=== PATIENT | female | born 1990 | race Caucasian/White ===

== ENCOUNTER 2017-01-01 20:59 | Emergency (ER) | payer MEDICAID ==
[2016-03-02 13:29] VITALS: BMI 42.0
[~2017-01-01 20:59] MED LIST: IBUPROFEN600 MG PO; PERCOCET 5-3251 TAB PO; PRENATAL COMPLE1 TAB PO
[2017-01-01 21:34] LABS: APPEARANCE CLEAR (CLEAR); BILIRUBIN NEGATIVE (NEGATIVE); COLOR YELLOW (YELLOW); GLUCOSE NEGATIVE (NEGATIVE); KETONE NEGATIVE (NEGATIVE); LEUKOCYTE ESTERASE NEGATIVE (NEGATIVE); NITRITE NEGATIVE (NEGATIVE); PROTEIN NEGATIVE (NEGATIVE); UROBILINOGEN NORMAL (NORMAL)
[2017-01-01 21:39] LABS: HCG URINE NEGATIVE (NEGATIVE)
== END 2017-01-01 23:40 | disposition home or self-care (01) ==
LOC: D.ER 20:59
PROVIDERS: Emergency Medicine
DX: N76.0 Acute vaginitis (principal); F17.200 Nicotine dependence, unspecified, uncomplicated

== ENCOUNTER 2017-06-18 23:17 | Emergency (ER) | payer MEDICAID ==
[2016-03-02 13:29] VITALS: BMI 42.0
== END 2017-06-18 23:55 | disposition home or self-care (01) ==
LOC: D.ER 23:17
DX: J11.1 Influenza due to unidentified influenza virus with other respiratory manifestations (principal); R09.89 Other specified symptoms and signs involving the circulatory and respiratory systems; R51 Headache

== ENCOUNTER 2018-09-09 21:17 | Inpatient (IN) | payer MEDICAID ==
[~2018-09-09] VITALS: Ht 170.2 cm; Wt 109.1 kg
[2018-09-09 22:07] LABS: APPEARANCE CLEAR (CLEAR); BILIRUBIN NEGATIVE (NEGATIVE); COLOR STRAW (YELLOW); GLUCOSE NEGATIVE (NEGATIVE); KETONE NEGATIVE (NEGATIVE); NITRITE NEGATIVE (NEGATIVE); PROTEIN NEGATIVE (NEGATIVE); SPECIFIC GRAVITY 1.015 (1.005-1.020); UROBILINOGEN NORMAL (NORMAL)
[2018-09-09 22:11] LABS: HCG URINE NEGATIVE (NEGATIVE)
[2018-09-09 22:29] LABS: BASOPHILS 0.4 % (0-2); EOSINOPHILS 2.8 % (0-7); HEMATOCRIT 37.8 % (36.0-48.0); HEMOGLOBIN 12.4 g/dL (12-16); IMMATURE GRANULOCYTES 0.3 % (0-5); LYMPHOCYTES 28.7 % (15-50); MCH 25.9 pg (26.0-34.0); MCHC 32.8 g/dL (31.0-37.0); MCV 78.9 fL (80.0-100.0); MEAN PLATELET VOLUME 10.1 fL (7.4-10.4); NEUTROPHILS 59.8 % (40-80); PLATELET COUNT 231 10x3/uL (130-400); RBC 4.79 10x6/uL (4.00-5.40); RDW 14.3 % (11.5-14.5); WBC 11.9 10x3/uL (4.8-10.8)
[2018-09-09 22:46] LABS: ALBUMIN 3.5 g/dL (3.4-5.0); ALKALINE PHOSPHATASE 77 U/L (46-116); ALT (SGPT) 32 U/L (10-68); BILIRUBIN - TOTAL 0.16 mg/dL (0.2-1.3); CALC OSMOLALITY 280 mosm/kg (275-300); CALCIUM 9.2 mg/dL (8.5-10.1); CARBON DIOXIDE 26.7 mmol/L (21.0-32.0); CHLORIDE - SERUM 106 mmol/L (98-107); CREATININE - SERUM 1.1 mg/dL (0.6-1.3); GLUCOSE 114 mg/dL (74-106); POTASSIUM - SERUM 3.7 mmol/L (3.5-5.1); PROTEIN - SERUM 7.2 g/dL (6.4-8.2); SODIUM 141 mmol/L (136-145); UREA NITROGEN 11 mg/dL (7-18); eGFR NON AFRICAN AMERICAN 64 mL/min (90-120)
[2018-09-09 22:54] LABS: AMYLASE - SERUM 46 U/L (25-115); LIPASE 118 U/L (73-393); TROPONIN-I < 0.017 ng/mL (0.000-0.060)
[2018-09-09 23:43] VITALS: BP 141/87
--- NOTE | 2018-09-09 23:44 | NUR ---
PATIENT AWAKE AND ALERT, COLOR WNL FOR RACE, RESPIRATIONS EVEN AND UNLABORED. NO NEEDS NOTED. UPDATED ON PLAN OF CARE AND DELAYS IN CARE. WILL CONTINUE TO MONITOR.
[2018-09-10 01:39] VITALS: BP 144/93
--- NOTE | 2018-09-10 02:52 | NUR ---
NS AT 125ML/HOUR AND ZOSYN IVPB CON'T ON ADMISSION TO 1213.
[2018-09-10] MEDS ORDERED: TUMS X-STR300 MG (03:08)
--- NOTE | 2018-09-10 03:17 | NUR ---
PT ARRIVED TO M3 WITH HOSPITAL STAFF AND FAMILY MEMBER, PT ALERT AND ORIENTED. CALL LIGHT IN REACH.
[2018-09-10 03:32] VITALS: BP 123/71; BMI 37.7
--- NOTE | 2018-09-10 03:45 | NUR ---
REST QUIETLY IN BED, CALL LIGHT IN REACH.
[2018-09-10 04:00] VITALS: BP 123/71
[2018-09-10 07:14] VITALS: BP 124/61; Ht 170.2 cm; Wt 109.1 kg
--- NOTE | 2018-09-10 07:14 | NUR ---
PT IS RESTING IN BED WITH EYES CLOSED RESPIRATIONS ARE EVEN AND UNLABORED. PT IS EASILY AROUSED WITH VERBAL STIMULATION. VISITOR IS IN ROOM IN BEDSIDE CHAIR. PT DENIES PRESENCE OF PAIN. PT DENIES PRESENCE OF N/V AT THIS TIME. BED IS IN THE LOWEST POSITION. CALL LIGHT AND BEDSIDE TABLE ARE WITHIN REACH. SIDE RAILS X 2. PT DENIES FURTHER NEEDS AT THIS TIME. WILL CONT TO MONITOR.
[2018-09-10 09:13] LABS: HEMATOCRIT 35.1 % (36.0-48.0); HEMOGLOBIN 11.2 g/dL (12-16); MCHC 31.9 g/dL (31.0-37.0); MCV 78.3 fL (80.0-100.0); MEAN PLATELET VOLUME 10.7 fL (7.4-10.4); PLATELET COUNT 217 10x3/uL (130-400); RBC 4.48 10x6/uL (4.00-5.40); RDW 14.4 % (11.5-14.5)
[2018-09-10 09:52] LABS: WBC 8.2 10x3/uL (4.8-10.8)
[2018-09-10 10:06] LABS: BASOPHILS 0.4 % (0-2); EOSINOPHILS 3.3 % (0-7); IMMATURE GRANULOCYTES 0.2 % (0-5); LYMPHOCYTES 34.3 % (15-50); MONOCYTES 8.4 % (2-11); NEUTROPHILS 53.4 % (40-80)
[2018-09-10 11:49] VITALS: BP 129/66
--- NOTE | 2018-09-10 15:57 | MORECARE ---
CASE MANAGEMENT DISCHARGE SUMMARY PATIENT: NICOLE CASTELLANOS UNIT: [id number] ADM DATE: 09/10/18 AGE: 28 : [birth year] SEX: F ROOM/BED: D.1213 AUTHOR: JULIÁN DUARTE PHYSICIAN: REFERRING PHYSICIAN: NAT LUIS MD DATE OF SERVICE: 09/10/18 Discharge Plan Patient Name: NICOLE CASTELLANOS Facility: [facility]:[place] : 1990 Planned Disposition: Home Anticipated Discharge Date: Discharge Date: Expected LOS: Initial Reviewer: [email or web address] Initial Review Date: 09/10/2018 Generated: 09/10/18 4:57 pm Comments DCP- Discharge Planning Updated by [email or web address]: Skye Schaffer on 09/10/18 2:[address] Patient Name: NICOLE CASTELLANOS Admission Status: ER Accout number: [id number] Admission Date: 09-10-2018 : 1990 Admission Diagnosis: Attending: NAT LUIS Current LOS: 1 Anticipated DC Date: Planned Disposition: Home Primary Insurance: [employer] [facility] Discharge Planning Comments: CM MET WITH PATIENT AND FAMILY ABOUT DC PLANNING/NEEDS. STATES IS TO HAVE SURGERY SUNDAY AND THEN DC TO HOME. DENIES ANY NEEDS AT THIS TIME. CM TO FOLLOW AND ASSIST NEEDED WITH DC PLANNING/NEEDS. Sandwich Machine Operator: Skye Schaffer DCPIA - Discharge Planning Initial Assessment Updated by [email or web address]: Skye Schaffer on 09/10/18 3:53 pm * Is the patient Alert and Oriented? Yes * PCP NONE * Pharmacy [facility] * Preadmission Environment Home with Family * ADLs Independent * Equipment None * List name and contact numbers for known caregivers / representatives who currently or will assist patient after discharge: ELIAZAR, * Community resources currently utilized None * Additional services required to return to the preadmission environment? No * Can the patient safely return to the preadmission environment? Yes * Has this patient been hospitalized within the prior 30 days at any hospital? No Patient Name: NICOLE CASTELLANOS Page [phone] at 1557 All edits/amendments must be made on the electronic document DICTATION DATE: 09/10/181555 SCRAP YARD WORKER: CARLOS 09/10/18 155 RPT#: [id number] DC DATE: STATUS: ADM IN [facility] [address] [place] [address] END OF REPORT
[2018-09-10] MEDS ORDERED: HYDROCODON-ACE1 EA10 PO (16:11)
[2018-09-10 16:35] VITALS: BP 133/65
--- NOTE | 2018-09-10 18:10 | NUR ---
DISCHARGE INSTRUCTIONS GIVEN TO PT AND PT FAMILY MEMBER. PRINTED RX GIVEN TO PT. ALL QUESTIONS ANSWERED. PT AND PT FAMILY MEMBER DENY FURTHER QUESTIONS AND/OR CONCERNS AT THIS TIME. DISCHARGE PAPERS SIGNED. PIC REMOVED FROM RIGHT AC WITH CATHETER TIP INTACT. DRESSING APPLIED. PT DENIES FURTHER NEEDS.
--- NOTE | 2018-09-10 18:19 | NUR ---
PT AMBULATES FROM ROOM FOR TRANSPORT HOME. PT REFUSES WHEELCHAIR AT THIS TIME.
--- NOTE | 2018-09-11 08:22 | MORECARE ---
CASE MANAGEMENT DISCHARGE SUMMARY PATIENT: NICOLE CASTELLANOS UNIT: [id number] ADM DATE: 09/10/18 AGE: 28 : [birth year] SEX: F ROOM/BED: D.1213 AUTHOR: JULIÁN DUARTE PHYSICIAN: REFERRING PHYSICIAN: NAT LUIS MD DATE OF SERVICE: 09/11/18 Discharge Plan Patient Name: NICOLE CASTELLANOS Facility: [facility]:[place] : 1990 Planned Disposition: Home Anticipated Discharge Date: Discharge Date: 09/10/2018 Expected LOS: Initial Reviewer: [email or web address] Initial Review Date: 09/10/2018 Generated: 09/11/18 9:21 am Comments DCP- Discharge Planning Updated by [email or web address]: Skye Schaffer on 09/10/18 2:[address] Patient Name: NICOLE CASTELLANOS Admission Status: ER Accout number: [id number] Admission Date: 09-10-2018 : 1990 Admission Diagnosis: Attending: NAT LUIS Current LOS: 1 Anticipated DC Date: Planned Disposition: Home [facility] [employer] Discharge Planning Comments: CM MET WITH PATIENT AND FAMILY ABOUT DC PLANNING/NEEDS. STATES IS TO HAVE SURGERY SUNDAY AND THEN DC TO HOME. DENIES ANY NEEDS AT THIS TIME. CM TO FOLLOW AND ASSIST NEEDED WITH DC PLANNING/NEEDS. Instrument Adjuster: Skye Schaffer DCPIA - Discharge Planning Initial Assessment Updated by [email or web address]: Skye Schaffer on 09/10/18 3:53 pm * Is the patient Alert and Oriented? Yes * PCP NONE * Pharmacy [facility] * Preadmission Environment Home with Family * ADLs Independent * Equipment None * List name and contact numbers for known caregivers / representatives who currently or will assist patient after discharge: ELIAZAR, * Community resources currently utilized None * Additional services required to return to the preadmission environment? No * Can the patient safely return to the preadmission environment? Yes * Has this patient been hospitalized within the prior 30 days at any hospital? No Last DP export: 09/10/18 2:57 pm Patient Name: NICOLE CASTELLANOS Page [phone] at 0822 All edits/amendments must be made on the electronic document DICTATION DATE: 09/11/18820 LINE TECHNICIAN: CARLOS 09/11/18820 RPT#: [id number] DC DATE:09/10/18 STATUS: DIS IN [facility] [address] [facility] [place] [address] END OF REPORT
== END 2018-09-10 18:27 | disposition home or self-care (01) | DRG 445 ==
LOC: D.ER 21:17 → D.M3 09-10 02:13 → OBSVTIME 09-10 02:13 → D.M3 09-10 07:49
PROVIDERS: Family Medicine; ADMIT Internal Medicine Nephrology; ATTEND Internal Medicine Nephrology
DX: K80.42 Calculus of bile duct with acute cholecystitis without obstruction (principal); F17.213 Nicotine dependence, cigarettes, with withdrawal; K21.9 Gastro-esophageal reflux disease without esophagitis; D50.9 Iron deficiency anemia, unspecified; E11.9 Type 2 diabetes mellitus without complications

== ENCOUNTER 2018-09-12 10:09 | Day surgery (SDC) | payer MEDICAID ==
[~2018-09-12] VITALS: Ht 170.2 cm; Wt 108.9 kg
[~2018-09-12 10:09] MED LIST changes: +HYDROCODON-ACE1 EA10 PO; +TUMS X-STR300 MG
[2018-09-12 10:45] LABS: BASOPHILS 0.4 % (0-2); EOSINOPHILS 3.1 % (0-7); HEMATOCRIT 37.1 % (36.0-48.0); IMMATURE GRANULOCYTES 0.4 % (0-5); LYMPHOCYTES 27.9 % (15-50); MCH 25.8 pg (26.0-34.0); MCHC 32.3 g/dL (31.0-37.0); MCV 79.6 fL (80.0-100.0); MEAN PLATELET VOLUME 10.7 fL (7.4-10.4); NEUTROPHILS 60.2 % (40-80); PLATELET COUNT 229 10x3/uL (130-400); RBC 4.66 10x6/uL (4.00-5.40); RDW 14.5 % (11.5-14.5); WBC 7.9 10x3/uL (4.8-10.8)
[2018-09-12 11:11] LABS: CALC OSMOLALITY 271 mosm/kg (275-300); CALCIUM 8.5 mg/dL (8.5-10.1); CARBON DIOXIDE 25.9 mmol/L (21.0-32.0); CHLORIDE - SERUM 105 mmol/L (98-107); CREATININE - SERUM 0.8 mg/dL (0.6-1.3); GLUCOSE 86 mg/dL (74-106); SODIUM 137 mmol/L (136-145); UREA NITROGEN 9 mg/dL (7-18); eGFR NON AFRICAN AMERICAN > 90 mL/min (90-120)
[2018-09-12 13:00] VITALS: BP 131/74; Ht 170.2 cm; Wt 108.9 kg
[2018-09-12 13:09] LABS: HCG URINE NEGATIVE (NEGATIVE)
[2018-09-12] MEDS ORDERED: HYDROCODON-ACE1 EA10 PO (14:26)
--- NOTE | 2018-09-12 16:09 | OP ---
PATIENT NAME: NICOLE CASTELLANOS MEDICAL RECORD: [id number] :[birth year] LOCATION:D.OPS ADMISSION DATE: SURGEON: LUCRECIA LOGAN MD DATE OF OPERATION: 09/12/2018 PREOPERATIVE DIAGNOSES: 1. Biliary dyskinesia. 2. Diabetes mellitus. POSTOPERATIVE DIAGNOSES: 1. Symptomatic gallstones. 2. Diabetes mellitus. PROCEDURE: Laparoscopic cholecystectomy. SURGEON: Lucrecia Logan MD REPORT OF PROCEDURE: The patient's abdomen was prepped and draped in sterile fashion. A cutdown was made on the superior aspect of the umbilicus. Vicryls #0 were placed on the fascia bilaterally and the fascia was incised with a #15 blade. I then bluntly entered the peritoneal cavity and placed a 12-mm Krysten port. Under direct visualization, a 5-mm trocar was placed in the epigastrium and two more 5-mm trocars were placed in the right subcostal region. The gallbladder was grasped and elevated. The cystic artery and cystic duct were dissected free. These were clipped proximally and distally and ligated in standard fashion. The gallbladder was taken off the liver bed using electrocautery and placed into the right upper quadrant. Any bleeding from the liver bed was then treated with electrocautery. At this point, the ports and insufflation were then removed and the gallbladder was taken out through the umbilicus. The umbilical fascia was closed with interrupted #0 Vicryls times 3. The wounds were irrigated out with normal saline and infused with 10 mL of 0.25% Marcaine with epinephrine. The skin incisions were all closed with subcutaneous 5-0 Monocryl and dressed appropriately. COMPLICATIONS: None. CONDITION: Stable. ANESTHESIA: General endotracheal and local. BLOOD LOSS: Minimal. TRANSINT:[id number] Voice Confirmation ID: [id number] DOCUMENT ID: [id number] LUCRECIA LOGAN MD at 1609 CC: [id number] DICTATION DATE: 09/12/18 1435 EMPLOYEE COMMUNICATIONS INTERN: 09/12/18 1503 [facility] [address] [place] [id number]
--- NOTE | 2018-09-12 17:19 | NUR ---
[address] LOGAN, JOSE ALBERTOFRJOSEFA ODT 4MG Q 8 HOURS PRN #[id number] CALLED INTO [facility]
== END 2018-09-12 17:20 | disposition home or self-care (01) ==
LOC: D.OPS 10:09 → D.PAN 12:30 → D.OPS 17:20
PROVIDERS: ATTEND Surgery
DX: K80.10 Calculus of gallbladder with chronic cholecystitis without obstruction (principal); E11.9 Type 2 diabetes mellitus without complications; Z01.812 Encounter for preprocedural laboratory examination